=== PATIENT | female | born 1950 | race Caucasian/White ===

== ENCOUNTER → 2018-05-25 09:56 | Outpatient (CLI) | payer MEDICARE, OTHER, SELFPAY ==
--- NOTE | 2018-05-25 | DI.MG.S_ITS ---
BILATERAL DIGITAL SCREENING MAMMOGRAM 3D/2D WITH CAD: 05/25/2018 CLINICAL: Routine screening. Family history of breast cancer. Comparison is made to exams dated: 05/19/2017 mammogram, 02/19/2016 mammogram, and 01/05/2015 mammogram - [facility]. There are scattered fibroglandular elements in both breasts. Current study was also evaluated with a Computer Aided Detection (CAD) system. No significant masses, calcifications, or other findings are seen in either breast. There has been no significant interval change. IMPRESSION: NEGATIVE There is no mammographic evidence of malignancy. A 1 year screening mammogram is recommended. This exam was interpreted at Station ID: [id number]. NOTE: For mammograms, a report in lay terms will be sent to the patient. Approximately 15% of breast malignancies will not be visualized mammographically. In the management of a palpable breast mass, a negative mammogram must not discourage biopsy of a clinically suspicious lesion. Electronically Signed By: Kunal harris/dary:05/25/2018 16:55:39 letter sent: Normal Exam ACR BI-RADS Category 1: Negative 3341F
== END ==
PROVIDERS: Family Provider Internal Medicine; PCP Internal Medicine; Visit Provider Internal Medicine
DX: Z12.31 Encounter for screening mammogram for malignant neoplasm of breast (principal); Z80.3 Family history of malignant neoplasm of breast
CPT/HCPCS: 77063; 77067

== ENCOUNTER → 2018-08-12 14:04 | Outpatient (CLI) | payer MEDICARE, OTHER, SELFPAY | DX: Z23 Encounter for immunization (principal) | CPT/HCPCS: 90471; 90662 ==

== ENCOUNTER → 2018-08-12 15:41 | Outpatient (CLI) | payer MEDICARE, OTHER, SELFPAY | DX: Z23 Encounter for immunization (principal) ==

== ENCOUNTER → 2019-06-09 11:08 | Outpatient (CLI) | payer MEDICARE, OTHER, SELFPAY ==
--- NOTE | 2019-06-09 | DI.MG.S_ITS ---
BILATERAL DIGITAL SCREENING MAMMOGRAM 3D/2D WITH CAD: 06/09/2019 CLINICAL: Routine screening. Family history of breast cancer. Comparison is made to exams dated: 05/25/2018 mammogram, 05/19/2017 mammogram, and 02/19/2016 mammogram - [facility]. There are scattered fibroglandular elements in both breasts. Current study was also evaluated with a Computer Aided Detection (CAD) system. No significant masses, calcifications, or other findings are seen in either breast. There has been no significant interval change. IMPRESSION: NEGATIVE There is no mammographic evidence of malignancy. A 1 year screening mammogram is recommended. This exam was interpreted at Station ID: [id number]. NOTE: For mammograms, a report in lay terms will be sent to the patient. Approximately 15% of breast malignancies will not be visualized mammographically. In the management of a palpable breast mass, a negative mammogram must not discourage biopsy of a clinically suspicious lesion. Electronically Signed By: Magdy bunn/dary:06/09/2019 12:39:52 letter sent: Normal Exam ACR BI-RADS Category 1: Negative 3341F
== END ==
PROVIDERS: Family Provider Internal Medicine; PCP Internal Medicine; Visit Provider Internal Medicine
DX: Z12.31 Encounter for screening mammogram for malignant neoplasm of breast (principal); Z80.3 Family history of malignant neoplasm of breast
CPT/HCPCS: 77063; 77067

== ENCOUNTER → 2019-08-02 15:39 | Outpatient (CLI) | payer MEDICARE, OTHER, SELFPAY | PROVIDERS: PCP Internal Medicine | DX: Z23 Encounter for immunization (principal) | CPT/HCPCS: 90471; 90662 ==

== ENCOUNTER → 2019-10-11 15:55 | Outpatient (CLI) | payer MEDICARE, OTHER, SELFPAY ==
--- NOTE | 2019-10-11 | DI.RAD.S_ITS ---
PROCEDURE: XR SHOULDER LT MIN 2V INDICATIONS: shoulder injury TECHNIQUE: 3 views of the shoulder were acquired. COMPARISON: None. FINDINGS: Bones: No fractures or dislocations. No suspicious bony lesions. Visualized ribs appear intact. Severe AC joint degeneration. There is also glenohumeral degenerative sclerosis and spurring. Lateral downsloping appearance of the acromion. Soft tissues: No suspicious soft tissue calcifications. IMPRESSION: No fracture. If the patient's pain or other symptoms persist, consider further evaluation with MRI Degenerative changes as above Dictated by: Wesley Mcelroy M.D. on 10/11/2019 at 16:47 Approved by: Wesley Mcelroy M.D. on 10/11/2019 at 16:48
== END ==
PROVIDERS: PCP Internal Medicine; Visit Provider Internal Medicine
DX: S49.92XA Unspecified injury of left shoulder and upper arm, initial encounter (principal); M19.012 Primary osteoarthritis, left shoulder; X58.XXXA Exposure to other specified factors, initial encounter
CPT/HCPCS: 73030

== ENCOUNTER 2019-11-15 13:45 | Outpatient (RCR) | payer MEDICARE, OTHER, SELFPAY ==
--- NOTE | 2019-10-13 17:36 | PT.OIE ---
Current Diagnoses Other shoulder lesions, left shoulder (10/13/19) Visit Care Team Role Provider Type Kar Middleton MD Attending Provider Physician Primary Care Provider Specialty: Internal Medicine Address: [address] [place] [address], [id number] Email: [email or web address] [facility] Initial Evaluation PT-OP-A Visit Information Start: 10/13/19 15:17 Freq: Status: Active Protocol: Document 10/13/19 15:17 (Rec: 10/13/19 17:30 [id number]) Out-Patient Physical Therapy Visit Information Visit Information Visit Type Initial Evaluation Visit Note IE led by SAUNDRA Aggarwal, supervised by PT James Visit Start Time 15:17 Visit Stop Time 15:55 Total Visit Minutes 38 Visit Number 1 Number of BILLING CONTROL CLERK Visits 0 Evaluation Information Evaluation Date 10/13/19 PT-OP-B Current Condition Start: 10/13/19 15:17 Freq: Status: Active Protocol: Document 10/13/19 15:17 HH (Rec: 10/13/19 17:30 [id number]) Current Condition History of Current Condition Onset Date ~1 month ago Current Complaints L shoulder/upper arm pain History of Current Condition Pt presents to PT with primary c/o L shoulder pain that started ~1 month ago. She states that she thinks she injured her shoulder while assisting her with transfers. Her has MS and is wheelchair bound, and typically is able to stand/ pivot transfer independently but 1 or 2 times/week pt needs to assist to prevent falls. She described her symptoms as dull and achy pain. She notes that the main activities that aggravate it are sleeping on her R side and doing shoulder barbell raise with B shoulder abduction and IR during her exercise class. She states that overall she thinks her pain is improving but still notes lingering pain after activity. Prior Treatments and Tests XR 10/11/19: no fx, AC joint degeneration Treatment Goals Patient/Caregiver Goals 1. improve shoulder ROM 2. able to fully participate in exercise class without pain 3. learn how to safely help with transfers to prevent reinjury PT-OP-C Subjective Start: 10/13/19 15:17 Freq: Status: Active Protocol: Document 10/13/19 15:17 (Rec: 10/13/19 17:30 [id number]) OP-PT Subjective Patient Comments Patient Comments I feel like my shoulder pain is improving but I still have pain after helping my or during my exercise class. I feel like I have also lost some of my shoulder ROM. Patient Questionnaires Quick Dash- Upper Extremity Quick Dash UE Score 29.5 Quick Dash UE Impairment 20 to 39% Impaired (Score 20- 39) OP-PT Pain Assessment Location L shoulder Pain Location Details L suprascapular, biceps/upper arm Intensity 4 Scale Used Numeric (1 - 10) Description Aching,Dull,With Movement Frequency Intermittent Pain Aggravating Factors ADL's,Exercise,Lifting Pain Alleviating Factors Inactivity PT-OP-H Neuro Start: 10/13/19 15:17 Freq: Status: Active Protocol: Document 10/13/19 15:17 HH (Rec: 10/13/19 17:30 [id number]) Sensation Evaluation Gross Sensation Gross Sensation WNL Deep Tendon Reflex & Clonus Assessment Deep Tendon Reflex Bilateral Tricep Deep Tendon Reflex 2+ Normal Bilateral Brachioradialis Deep Tendon Reflex 2+ Normal Bilateral Bicep Deep Tendon Reflex 2+ Normal PT-OP-J Posture/Palpation/Skin Start: 10/13/19 15:17 Freq: Status: Active Protocol: Document 10/13/19 15:17 HH (Rec: 10/13/19 17:30 [id number]) Posture Evaluation Position Sitting Evaluation View Lateral T-Spine Posture Increased Kyphosis Shoulder Posture (L) Rounded,(R) Rounded PT-OP-K Range of Motion Start: 10/13/19 15:17 Freq: Status: Active Protocol: Document 10/13/19 15:17 HH (Rec: 10/13/19 17:30 [id number]) Cervical Spine Range of Motion Cervical Spine Active Testing Position Sitting Flexion 50 Extension 50 Rotation Left 60 Rotation Right 45 Comments pt notes mild stretching sx in L shoulder with R C/S rotation and SB Shoulder Goniometric Range of Motion Shoulder Left Testing Position sitting, supine Flexion 150 Abduction 130 External Rotation at 90 degrees 50 Abduction Right Testing Position Sitting Flexion 170 Abduction 180 PT-OP-L Special Tests Start: 10/13/19 15:17 Freq: Status: Active Protocol: Document 10/13/19 15:17 (Rec: 10/13/19 17:30 [id number]) Special Tests Cervical Spine Special Tests Traction Test Results -ve Spurling's Test Test Results -ve Foraminal Compression Test Results -ve Comments mild stretch rotation in shoulder Shoulder Special Tests IR/Horizontal ADD Impingement Test Results -ve [place] Test Test Results +ve weakness Neer Impingement Test Results -ve Lift-Off Rotator Cuff Test Results -ve Empty Can Comments +ve for weakness Claire Ulcies Impingement Test Results -ve Yergason's Biceps Test Results -ve Biceps Load II Test Test Results -ve Apprehension Test Test Results +ve Comments + post relocation test Other Special Tests Special Tests Lumbar lock JMD PT-OP-M Strength Start: 10/13/19 15:17 Freq: Status: Active Protocol: Document 10/13/19 15:17 (Rec: 10/13/19 17:30 [id number]) Shoulder Strength Shoulder Manual Muscle Testing Left Flexion 4 Good Abduction (C5) 4 Good External Rotation 4 Good Internal Rotation 4 Good Right Flexion 5 Normal Abduction (C5) 5 Normal External Rotation 5 Normal Internal Rotation 5 Normal Elbow/Forearm Strength Elbow and Forearm Manual Muscle Testing Bilateral Flexion (C6) 5 Normal Extension (C7) 5 Normal Wrist Strength Wrist Manual Muscle Testing Bilateral Flexion (C7) 5 Normal Extension (C6) 5 Normal Finger/Thumb Strength Finger Manual Muscle Testing Bilateral Flexion (fingers C8) 5 Normal Abduction (fingers T1) 5 Normal PT-OP-Q Treatments Start: 10/13/19 15:17 Freq: Status: Active Protocol: Document 10/13/19 15:17 (Rec: 10/13/19 17:30 [id number]) Self-Care/Home Management Treatment Education Other Education Disc ways to assist with transfers without reaggravating shoulers. PT-OP-T Assessment and Plan Start: 10/13/19 15:17 Freq: Status: Active Protocol: Document 10/13/19 15:17 (Rec: 10/13/19 17:30 [id number]) Physical Therapy Assessment Rehab Potential Rehabilitation Potential Excellent Evaluation Complexity Number of Personal Factors/Comorbidities 0 Number of Body Systems Impaired 1-2 Clinical Presentation at Evaluation Stable Impairments Impairments Functional Mobility,Pain, Posture,ROM,Soft Tissue Mobility,Strength Goals Exercise class Impairment Pt unable to fully participate in exercise class d/t L shoulder pain Short Term Goal (STG) Pt will be able to participate in exercise class with limited weight without inc in shoulder pain STG Duration 4 weeks Mcfp Goal (LTG) Pt will be able to fully participate in exercise class without limitation or inc in shoulder pain LTG Duration 8 weeks ROM Impairment Pt has limited L shoulder mobility Short Term Goal (STG) Pt will increase L shoulder flexion and abduction ROM by 10 dg to improve ability to complete overhead functional movements STG Duration 4 weeks Mcfp Goal (LTG) Pt will increase L shoulder flexion and abduction ROM by 20 dg to improve ability to complete overhead functional movements LTG Duration 8 weeks Quick DASH Impairment Pt scores as 29.5% impaired on Quick DASH Short Term Goal (STG) Pt will score <20% on Quick DASH to reflect improved participation in functional activities STG Duration 4 weeks Mcfp Goal (LTG) Pt will score <10% on Quick DASH to reflect improved participation in functional activities LTG Duration 8 weeks Assessment Summary Assessment Pt is low complexity eval presenting to PT with primary c/o of L shoulder pain. Pt demonstrates low sx irritability during IE but notes feeling generally dull ache by end of evaluation. Pt also reports pain with shoulder abduction as well as pain and weakness with abduction MMT. Pt demonstrates weakness with L shoulder ER MMT and empty can test. Pt demonstrates mild ant shoulder instability with sx reproduction with apprehension test and relief with post relocation test. She also has inc'd thoracic kyphosis and limited thoracic mobility which likely is contributing to shoulder irritation. Pt will benefit from skilled therapy to improve thoracic mobility as well as scapular and shoulder strength, and should recover well with therapy. Physical Therapy Plan Frequency and Duration Frequency of Treatment 2x/Week Duration of Treatment 8 weeks Plan of Care Start Date 10/13/19 Plan of Care End Date 12/08/19 Therapeutic Interventions Therapeutic Interventions Home Exercise Program,Joint Mobilizations,Manual Therapy, Neuromuscular Re-education, Patient/Caregiver Education, Self-Care/Home Management,Soft Tissue Mobilization,Taping, Therapeutic Activities, Therapeutic Exercises Modalities Cold Pack/Ice Massage,Electric Stimulation,Hot Packs, Ultrasound Next Visit Focus/Plan Next Note Type Treatment Note Next Visit Plan Thoracic mobility RC isometrics scapular stabilization safe transfer assist practice
--- NOTE | 2019-10-13 17:40 | PT.OTN ---
Current Diagnoses Other shoulder lesions, left shoulder (10/13/19) Physical Therapy Treatment Note PT-OP-A Visit Information Start: 10/13/19 15:17 Freq: Status: Active Protocol: Document 10/13/19 15:17 (Rec: 10/13/19 17:30 [id number]) Out-Patient Physical Therapy Visit Information Visit Information Visit Type Initial Evaluation Visit Note IE led by SPT Jasen, supervised by PT James Visit Start Time 15:17 Visit Stop Time 15:55 Total Visit Minutes 38 Visit Number 1 Number of TELECASTING ENGINEER Visits 0 Evaluation Information Evaluation Date 10/13/19 PT-OP-B Current Condition Start: 10/13/19 15:17 Freq: Status: Active Protocol: Document 10/13/19 15:17 HH (Rec: 10/13/19 17:30 [id number]) Current Condition History of Current Condition Onset Date ~1 month ago Current Complaints L shoulder/upper arm pain History of Current Condition Pt presents to PT with primary c/o L shoulder pain that started ~1 month ago. She states that she thinks she injured her shoulder while assisting her with transfers. Her has MS and is wheelchair bound, and typically is able to stand/ pivot transfer independently but 1 or 2 times/week pt needs to assist to prevent falls. She described her symptoms as dull and achy pain. She notes that the main activities that aggravate it are sleeping on her R side and doing shoulder barbell raise with B shoulder abduction and IR during her exercise class. She states that overall she thinks her pain is improving but still notes lingering pain after activity. Prior Treatments and Tests XR 10/11/19: no fx, AC joint degeneration Treatment Goals Patient/Caregiver Goals 1. improve shoulder ROM 2. able to fully participate in exercise class without pain 3. learn how to safely help with transfers to prevent reinjury PT-OP-C Subjective Start: 10/13/19 15:17 Freq: Status: Active Protocol: Document 10/13/19 15:17 (Rec: 10/13/19 17:30 [id number]) OP-PT Subjective Patient Comments Patient Comments I feel like my shoulder pain is improving but I still have pain after helping my or during my exercise class. I feel like I have also lost some of my shoulder ROM. Patient Questionnaires Quick Dash- Upper Extremity Quick Dash UE Score 29.5 Quick Dash UE Impairment 20 to 39% Impaired (Score 20- 39) OP-PT Pain Assessment Location L shoulder Pain Location Details L suprascapular, biceps/upper arm Intensity 4 Scale Used Numeric (1 - 10) Description Aching,Dull,With Movement Frequency Intermittent Pain Aggravating Factors ADL's,Exercise,Lifting Pain Alleviating Factors Inactivity PT-OP-H Neuro Start: 10/13/19 15:17 Freq: Status: Active Protocol: Document 10/13/19 15:17 HH (Rec: 10/13/19 17:30 [id number]) Sensation Evaluation Gross Sensation Gross Sensation WNL Deep Tendon Reflex & Clonus Assessment Deep Tendon Reflex Bilateral Tricep Deep Tendon Reflex 2+ Normal Bilateral Brachioradialis Deep Tendon Reflex 2+ Normal Bilateral Bicep Deep Tendon Reflex 2+ Normal PT-OP-J Posture/Palpation/Skin Start: 10/13/19 15:17 Freq: Status: Active Protocol: Document 10/13/19 15:17 HH (Rec: 10/13/19 17:30 [id number]) Posture Evaluation Position Sitting Evaluation View Lateral T-Spine Posture Increased Kyphosis Shoulder Posture (L) Rounded,(R) Rounded PT-OP-K Range of Motion Start: 10/13/19 15:17 Freq: Status: Active Protocol: Document 10/13/19 15:17 HH (Rec: 10/13/19 17:30 [id number]) Cervical Spine Range of Motion Cervical Spine Active Testing Position Sitting Flexion 50 Extension 50 Rotation Left 60 Rotation Right 45 Comments pt notes mild stretching sx in L shoulder with R C/S rotation and SB Shoulder Goniometric Range of Motion Shoulder Left Testing Position sitting, supine Flexion 150 Abduction 130 External Rotation at 90 degrees 50 Abduction Right Testing Position Sitting Flexion 170 Abduction 180 PT-OP-L Special Tests Start: 10/13/19 15:17 Freq: Status: Active Protocol: Document 10/13/19 15:17 HH (Rec: 10/13/19 17:30 [id number]) Special Tests Cervical Spine Special Tests Traction Test Results -ve Spurling's Test Test Results -ve Foraminal Compression Test Results -ve Comments mild stretch rotation in shoulder Shoulder Special Tests IR/Horizontal ADD Impingement Test Results -ve [place] Test Test Results +ve weakness Neer Impingement Test Results -ve Lift-Off Rotator Cuff Test Results -ve Empty Can Comments +ve for weakness Claire [place]lices Impingement Test Results -ve Yergason's Biceps Test Results -ve Biceps Load II Test Test Results -ve Apprehension Test Test Results +ve Comments + post relocation test Other Special Tests Special Tests Lumbar lock JMD PT-OP-M Strength Start: 10/13/19 15:17 Freq: Status: Active Protocol: Document 10/13/19 15:17 HH (Rec: 10/13/19 17:30 [id number]) Shoulder Strength Shoulder Manual Muscle Testing Left Flexion 4 Good Abduction (C5) 4 Good External Rotation 4 Good Internal Rotation 4 Good Right Flexion 5 Normal Abduction (C5) 5 Normal External Rotation 5 Normal Internal Rotation 5 Normal Elbow/Forearm Strength Elbow and Forearm Manual Muscle Testing Bilateral Flexion (C6) 5 Normal Extension (C7) 5 Normal Wrist Strength Wrist Manual Muscle Testing Bilateral Flexion (C7) 5 Normal Extension (C6) 5 Normal Finger/Thumb Strength Finger Manual Muscle Testing Bilateral Flexion (fingers C8) 5 Normal Abduction (fingers T1) 5 Normal PT-OP-Q Treatments Start: 10/13/19 15:17 Freq: Status: Active Protocol: Document 10/13/19 15:17 HH (Rec: 10/13/19 17:30 [id number]) Self-Care/Home Management Treatment Education Other Education Disc ways to assist with transfers without reaggravating shoulers. PT-OP-T Assessment and Plan Start: 10/13/19 15:17 Freq: Status: Active Protocol: Document 10/13/19 15:17 (Rec: 10/13/19 17:30 [id number]) Physical Therapy Assessment Rehab Potential Rehabilitation Potential Excellent Evaluation Complexity Number of Personal Factors/Comorbidities 0 Number of Body Systems Impaired 1-2 Clinical Presentation at Evaluation Stable Impairments Impairments Functional Mobility,Pain, Posture,ROM,Soft Tissue Mobility,Strength Goals Exercise class Impairment Pt unable to fully participate in exercise class d/t L shoulder pain Short Term Goal (STG) Pt will be able to participate in exercise class with limited weight without inc in shoulder pain STG Duration 4 weeks Half-Way Goal (LTG) Pt will be able to fully participate in exercise class without limitation or inc in shoulder pain LTG Duration 8 weeks ROM Impairment Pt has limited L shoulder mobility Short Term Goal (STG) Pt will increase L shoulder flexion and abduction ROM by 10 dg to improve ability to complete overhead functional movements STG Duration 4 weeks Half-Way Goal (LTG) Pt will increase L shoulder flexion and abduction ROM by 20 dg to improve ability to complete overhead functional movements LTG Duration 8 weeks Quick DASH Impairment Pt scores as 29.5% impaired on Quick DASH Short Term Goal (STG) Pt will score <20% on Quick DASH to reflect improved participation in functional activities STG Duration 4 weeks Half-Way Goal (LTG) Pt will score <10% on Quick DASH to reflect improved participation in functional activities LTG Duration 8 weeks Assessment Summary Assessment Pt is low complexity eval presenting to PT with primary c/o of L shoulder pain. Pt demonstrates low sx irritability during IE but notes feeling generally dull ache by end of evaluation. Pt also reports pain with shoulder abduction as well as pain and weakness with abduction MMT. Pt demonstrates weakness with L shoulder ER MMT and empty can test. Pt demonstrates mild ant shoulder instability with sx reproduction with apprehension test and relief with post relocation test. She also has inc'd thoracic kyphosis and limited thoracic mobility which likely is contributing to shoulder irritation. Pt will benefit from skilled therapy to improve thoracic mobility as well as scapular and shoulder strength, and should recover well with therapy. Physical Therapy Plan Frequency and Duration Frequency of Treatment 2x/Week Duration of Treatment 8 weeks Plan of Care Start Date 10/13/19 Plan of Care End Date 12/08/19 Therapeutic Interventions Therapeutic Interventions Home Exercise Program,Joint Mobilizations,Manual Therapy, Neuromuscular Re-education, Patient/Caregiver Education, Self-Care/Home Management,Soft Tissue Mobilization,Taping, Therapeutic Activities, Therapeutic Exercises Modalities Cold Pack/Ice Massage,Electric Stimulation,Hot Packs, Ultrasound Next Visit Focus/Plan Next Note Type Treatment Note Next Visit Plan Thoracic mobility RC isometrics scapular stabilization safe transfer assist practice
--- NOTE | 2019-10-14 17:17 | PT.OTN ---
Current Diagnoses Other shoulder lesions, left shoulder (10/14/19) Physical Therapy Treatment Note PT-OP-A Visit Information Start: 10/13/19 15:17 Freq: Status: Active Protocol: Document 10/14/19 14:35 HH (Rec: 10/14/19 17:17 [id number]) Out-Patient Physical Therapy Visit Information Visit Information Visit Type Treatment Note Visit Start Time 14:35 Visit Stop Time 15:14 Total Visit Minutes 39 Visit Number 2 Number of MERCHANDISE COMPLAINT ADJUSTER Visits 0 PT-OP-B Current Condition Start: 10/13/19 15:17 Freq: Status: Active Protocol: Document 10/13/19 15:17 HH (Rec: 10/13/19 17:30 [id number]) Current Condition History of Current Condition Onset Date ~1 month ago Current Complaints L shoulder/upper arm pain History of Current Condition Pt presents to PT with primary c/o L shoulder pain that started ~1 month ago. She states that she thinks she injured her shoulder while assisting her with transfers. Her has MS and is wheelchair bound, and typically is able to stand/ pivot transfer independently but 1 or 2 times/week pt needs to assist to prevent falls. She described her symptoms as dull and achy pain. She notes that the main activities that aggravate it are sleeping on her R side and doing shoulder barbell raise with B shoulder abduction and IR during her exercise class. She states that overall she thinks her pain is improving but still notes lingering pain after activity. Prior Treatments and Tests XR 10/11/19: no fx, AC joint degeneration Treatment Goals Patient/Caregiver Goals 1. improve shoulder ROM 2. able to fully participate in exercise class without pain 3. learn how to safely help with transfers to prevent reinjury PT-OP-C Subjective Start: 10/13/19 15:17 Freq: Status: Active Protocol: Document 10/14/19 14:35 HH (Rec: 10/14/19 17:17 [id number]) OP-PT Subjective Patient Comments Patient Comments I got sore from yesterday assessment but i did try to use pillow to support my shoulder last night and it did help. PT-OP-H Neuro Start: 10/13/19 15:17 Freq: Status: Active Protocol: Document 10/13/19 15:17 HH (Rec: 10/13/19 17:30 [id number]) Sensation Evaluation Gross Sensation Gross Sensation WNL Deep Tendon Reflex & Clonus Assessment Deep Tendon Reflex Bilateral Tricep Deep Tendon Reflex 2+ Normal Bilateral Brachioradialis Deep Tendon Reflex 2+ Normal Bilateral Bicep Deep Tendon Reflex 2+ Normal PT-OP-J Posture/Palpation/Skin Start: 10/13/19 15:17 Freq: Status: Active Protocol: Document 10/13/19 15:17 HH (Rec: 10/13/19 17:30 [id number]) Posture Evaluation Position Sitting Evaluation View Lateral T-Spine Posture Increased Kyphosis Shoulder Posture (L) Rounded,(R) Rounded PT-OP-K Range of Motion Start: 10/13/19 15:17 Freq: Status: Active Protocol: Document 10/13/19 15:17 HH (Rec: 10/13/19 17:30 [id number]) Cervical Spine Range of Motion Cervical Spine Active Testing Position Sitting Flexion 50 Extension 50 Rotation Left 60 Rotation Right 45 Comments pt notes mild stretching sx in L shoulder with R C/S rotation and SB Shoulder Goniometric Range of Motion Shoulder Left Testing Position sitting, supine Flexion 150 Abduction 130 External Rotation at 90 degrees 50 Abduction Right Testing Position Sitting Flexion 170 Abduction 180 PT-OP-L Special Tests Start: 10/13/19 15:17 Freq: Status: Active Protocol: Document 10/13/19 15:17 HH (Rec: 10/13/19 17:30 [id number]) Special Tests Cervical Spine Special Tests Traction Test Results -ve Spurling's Test Test Results -ve Foraminal Compression Test Results -ve Comments mild stretch rotation in shoulder Shoulder Special Tests IR/Horizontal ADD Impingement Test Results -ve [place] Test Test Results +ve weakness Neer Impingement Test Results -ve Lift-Off Rotator Cuff Test Results -ve Empty Can Comments +ve for weakness Claire Ulices Impingement Test Results -ve Yergason's Biceps Test Results -ve Biceps Load II Test Test Results -ve Apprehension Test Test Results +ve Comments + post relocation test Other Special Tests Special Tests Lumbar lock 20/30 JMD PT-OP-M Strength Start: 10/13/19 15:17 Freq: Status: Active Protocol: Document 10/13/19 15:17 HH (Rec: 10/13/19 17:30 [id number]) Shoulder Strength Shoulder Manual Muscle Testing Left Flexion 4 Good Abduction (C5) 4 Good External Rotation 4 Good Internal Rotation 4 Good Right Flexion 5 Normal Abduction (C5) 5 Normal External Rotation 5 Normal Internal Rotation 5 Normal Elbow/Forearm Strength Elbow and Forearm Manual Muscle Testing Bilateral Flexion (C6) 5 Normal Extension (C7) 5 Normal Wrist Strength Wrist Manual Muscle Testing Bilateral Flexion (C7) 5 Normal Extension (C6) 5 Normal Finger/Thumb Strength Finger Manual Muscle Testing Bilateral Flexion (fingers C8) 5 Normal Abduction (fingers T1) 5 Normal PT-OP-Q Treatments Start: 10/13/19 15:17 Freq: Status: Active Protocol: Document 10/14/19 14:35 HH (Rec: 10/14/19 17:17 [id number]) Therapeutic Exercises Supine Exercises AAROM flexion/ abd Side left Equipment Used SPC Reps/Minutes 10 x2 each motion Comments full range Sidelying Exercises open book Sidelying Exercise Name lumbar lock Side bilateral Reps/Minutes 8 x2 Comments cues on isolated T/S rotation with c/s rotation Standing Exercises scap row Side bilateral Equipment Used level 1 band Reps/Minutes 6 mins Comments pt initially did shd ext only, need cues for scap retraction Manual Therapy Treatment Soft Tissue Mobilization proximal bicep Body Location L side Mobilization Type Sustained Pressure,Trigger Point Release Intensity/Depth Moderate Body Position Sitting upper trap Body Location L side Mobilization Type Sustained Pressure,Trigger Point Release Intensity/Depth Moderate Body Position Sitting Joint Mobilizations post-inf glide Joint L GH joint at shd 90 abd Grade II Body Position Supine Reps/Duration 5 secs x 8 PT-OP-T Assessment and Plan Start: 10/13/19 15:17 Freq: Status: Active Protocol: Document 10/14/19 14:35 HH (Rec: 10/14/19 17:17 [email or web address]) Physical Therapy Assessment Goals Exercise class Impairment Pt unable to fully participate in exercise class d/t L shoulder pain Short Term Goal (STG) Pt will be able to participate in exercise class with limited weight without inc in shoulder pain STG Duration 4 weeks Aluminum Boat Assembly Supervisor Goal (LTG) Pt will be able to fully participate in exercise class without limitation or inc in shoulder pain LTG Duration 8 weeks ROM Impairment Pt has limited L shoulder mobility Short Term Goal (STG) Pt will increase L shoulder flexion and abduction ROM by 10 dg to improve ability to complete overhead functional movements STG Duration 4 weeks [facility] Goal (LTG) Pt will increase L shoulder flexion and abduction ROM by 20 dg to improve ability to complete overhead functional movements LTG Duration 8 weeks Quick DASH Impairment Pt scores as 29.5% impaired on Quick DASH Short Term Goal (STG) Pt will score <20% on Quick DASH to reflect improved participation in functional activities STG Duration 4 weeks Al[employer] Boat Assembly Supervisor Goal (LTG) Pt will score <10% on Quick DASH to reflect improved participation in functional activities LTG Duration 8 weeks Assessment Summary Assessment First tx today focused on STM on L trap, supinatus and biceps f/b new HEP with AAROM with cane, scap row and open book. Pt reports tenderness during STM and noticeable limited T/S trunk rotation and extension. Physical Therapy Plan Next Visit Focus/Plan Next Note Type Treatment Note Next Visit Plan review HEP and check [place] ROT and EXT Thoracic mobility RC isometrics scapular stabilization safe transfer assist practice
--- NOTE | 2019-10-17 13:50 | PT.OTN ---
Current Diagnoses Other shoulder lesions, left shoulder (10/17/19) Physical Therapy Treatment Note PT-OP-A Visit Information Start: 10/13/19 15:17 Freq: Status: Active Protocol: Document 10/17/19 13:06 SP (Rec: 10/17/19 14:00 SP [id number]) Out-Patient Physical Therapy Visit Information Visit Information Visit Type Treatment Note Visit Start Time 13:06 Visit Stop Time 13:51 Total Visit Minutes 45 Visit Number 3 Number of SHUCKER Visits 1 PT-OP-B Current Condition Start: 10/13/19 15:17 Freq: Status: Active Protocol: Document 10/13/19 15:17 HH (Rec: 10/13/19 17:30 HH [id number]) Current Condition History of Current Condition Onset Date ~1 month ago Current Complaints L shoulder/upper arm pain History of Current Condition Pt presents to PT with primary c/o L shoulder pain that started ~1 month ago. She states that she thinks she injured her shoulder while assisting her with transfers. Her has MS and is wheelchair bound, and typically is able to stand/ pivot transfer independently but 1 or 2 times/week pt needs to assist to prevent falls. She described her symptoms as dull and achy pain. She notes that the main activities that aggravate it are sleeping on her R side and doing shoulder barbell raise with B shoulder abduction and IR during her exercise class. She states that overall she thinks her pain is improving but still notes lingering pain after activity. Prior Treatments and Tests XR 10/11/19: no fx, AC joint degeneration Treatment Goals Patient/Caregiver Goals 1. improve shoulder ROM 2. able to fully participate in exercise class without pain 3. learn how to safely help with transfers to prevent reinjury PT-OP-C Subjective Start: 10/13/19 15:17 Freq: Status: Active Protocol: Document 10/17/19 13:06 SP (Rec: 10/17/19 14:00 SP [id number]) OP-PT Subjective Patient Comments Patient Comments PT-OP-H Neuro Start: 10/13/19 15:17 Freq: Status: Active Protocol: Document 10/13/19 15:17 HH (Rec: 10/13/19 17:30 HH [id number]) Sensation Evaluation Gross Sensation Gross Sensation WNL Deep Tendon Reflex & Clonus Assessment Deep Tendon Reflex Bilateral Tricep Deep Tendon Reflex 2+ Normal Bilateral Brachioradialis Deep Tendon Reflex 2+ Normal Bilateral Bicep Deep Tendon Reflex 2+ Normal PT-OP-J Posture/Palpation/Skin Start: 10/13/19 15:17 Freq: Status: Active Protocol: Document 10/13/19 15:17 HH (Rec: 10/13/19 17:30 [id number]) Posture Evaluation Position Sitting Evaluation View Lateral T-Spine Posture Increased Kyphosis Shoulder Posture (L) Rounded,(R) Rounded PT-OP-K Range of Motion Start: 10/13/19 15:17 Freq: Status: Active Protocol: Document 10/13/19 15:17 HH (Rec: 10/13/19 17:30 [id number]) Cervical Spine Range of Motion Cervical Spine Active Testing Position Sitting Flexion 50 Extension 50 Rotation Left 60 Rotation Right 45 Comments pt notes mild stretching sx in L shoulder with R C/S rotation and SB Shoulder Goniometric Range of Motion Shoulder Left Testing Position sitting, supine Flexion 150 Abduction 130 External Rotation at 90 degrees 50 Abduction Right Testing Position Sitting Flexion 170 Abduction 180 PT-OP-L Special Tests Start: 10/13/19 15:17 Freq: Status: Active Protocol: Document 10/13/19 15:17 HH (Rec: 10/13/19 17:30 [id number]) Special Tests Cervical Spine Special Tests Traction Test Results -ve Spurling's Test Test Results -ve Foraminal Compression Test Results -ve Comments mild stretch rotation in shoulder Shoulder Special Tests IR/Horizontal ADD Impingement Test Results -ve [place] Test Test Results +ve weakness Neer Impingement Test Results -ve Lift-Off Rotator Cuff Test Results -ve Empty Can Comments +ve for weakness Claire Ulices Impingement Test Results -ve Yergason's Biceps Test Results -ve Biceps Load II Test Test Results -ve Apprehension Test Test Results +ve Comments + post relocation test Other Special Tests Special Tests Lumbar lock 20/30 JMD PT-OP-M Strength Start: 10/13/19 15:17 Freq: Status: Active Protocol: Document 10/13/19 15:17 HH (Rec: 10/13/19 17:30 [id number]) Shoulder Strength Shoulder Manual Muscle Testing Left Flexion 4 Good Abduction (C5) 4 Good External Rotation 4 Good Internal Rotation 4 Good Right Flexion 5 Normal Abduction (C5) 5 Normal External Rotation 5 Normal Internal Rotation 5 Normal Elbow/Forearm Strength Elbow and Forearm Manual Muscle Testing Bilateral Flexion (C6) 5 Normal Extension (C7) 5 Normal Wrist Strength Wrist Manual Muscle Testing Bilateral Flexion (C7) 5 Normal Extension (C6) 5 Normal Finger/Thumb Strength Finger Manual Muscle Testing Bilateral Flexion (fingers C8) 5 Normal Abduction (fingers T1) 5 Normal PT-OP-Q Treatments Start: 10/13/19 15:17 Freq: Status: Active Protocol: Document 10/17/19 13:06 SP (Rec: 10/17/19 14:00 SP [id number]) Therapeutic Exercises Supine Exercises snow madelyn Side bilateral Equipment Used noodle along spine Reps/Minutes 5 reps AAROM flexion/ abd Side left Equipment Used SPC Reps/Minutes 10 x2 each motion Comments full range Sidelying Exercises open book Sidelying Exercise Name lumbar lock Side bilateral Reps/Minutes 10 x2 Comments cues on isolated T/S rotation with c/s rotation Standing Exercises RTC isometrics Standing Exercise Name ER, IR, FF, Ext Side left Reps/Minutes 10 hold x10 Comments cued chest lift and neutral pelvis to decrease post neck/ LB recruitment scap row Side bilateral Equipment Used level 2 band Reps/Minutes 3x10 Comments Cued for chest lift with improvement scap retraction Manual Therapy Treatment Joint Mobilizations PROM FF, ABD Reps/Duration 4 min post-inf glide Joint L GH joint at shd 90 abd Grade II Body Position Supine Reps/Duration 5 secs x 8 PT-OP-T Assessment and Plan Start: 10/13/19 15:17 Freq: Status: Active Protocol: Document 10/17/19 13:06 SP (Rec: 10/17/19 14:00 SP [id number]) Physical Therapy Assessment Goals Exercise class Impairment Pt unable to fully participate in exercise class d/t L shoulder pain Short Term Goal (STG) Pt will be able to participate in exercise class with limited weight without inc in shoulder pain STG Duration 4 weeks Head Swamper Goal (LTG) Pt will be able to fully participate in exercise class without limitation or inc in shoulder pain LTG Duration 8 weeks ROM Impairment Pt has limited L shoulder mobility Short Term Goal (STG) Pt will increase L shoulder flexion and abduction ROM by 10 dg to improve ability to complete overhead functional movements STG Duration 4 weeks Fdc Goal (LTG) Pt will increase L shoulder flexion and abduction ROM by 20 dg to improve ability to complete overhead functional movements LTG Duration 8 weeks Quick DASH Impairment Pt scores as 29.5% impaired on Quick DASH Short Term Goal (STG) Pt will score <20% on Quick DASH to reflect improved participation in functional activities STG Duration 4 weeks Fdc Goal (LTG) Pt will score <10% on Quick DASH to reflect improved participation in functional activities LTG Duration 8 weeks Assessment Summary Assessment Tx focused on HEP review: AAROM and TS mobility with good tolerance with increased ROM as reps progressed, added supine noodle for increase scapular ROM and standing RTC isometrics with report of muscle soreness/tiring and will probably use heating pad when gets home, declined end of tx today. Physical Therapy Plan Frequency and Duration Frequency of Treatment 2x/Week Duration of Treatment 8 weeks Plan of Care Start Date 10/13/19 Plan of Care End Date 12/08/19 Therapeutic Interventions Therapeutic Interventions Home Exercise Program,Joint Mobilizations,Manual Therapy, Neuromuscular Re-education, Patient/Caregiver Education, Self-Care/Home Management,Soft Tissue Mobilization,Taping, Therapeutic Activities, Therapeutic Exercises Modalities Cold Pack/Ice Massage,Electric Stimulation,Hot Packs, Ultrasound Next Visit Focus/Plan Next Note Type Treatment Note Next Visit Plan Review HEP: TS mob, AAROM FF/ ABD dowel, rows TB and added tolerance to RTC isometrics last tx. Next tx add: pulleys, wall walking LUE warm up, postural TB #1 if tolerated. Continue manual. Continue per PT POC: scapular stabilization safe transfer assist practice
--- NOTE | 2019-10-25 12:16 | PT.OTN ---
Current Diagnoses Other shoulder lesions, left shoulder (10/25/19) Physical Therapy Treatment Note PT-OP-A Visit Information Start: 10/13/19 15:17 Freq: Status: Active Protocol: Document 10/25/19 11:15 (Rec: 10/25/19 12:16 [id number]) Out-Patient Physical Therapy Visit Information Visit Information Visit Type Treatment Note Visit Start Time 11:15 Visit Stop Time 11:59 Total Visit Minutes 44 Visit Number 4 Number of POCKET ASSEMBLER Visits 0 PT-OP-B Current Condition Start: 10/13/19 15:17 Freq: Status: Active Protocol: Document 10/13/19 15:17 HH (Rec: 10/13/19 17:30 [id number]) Current Condition History of Current Condition Onset Date ~1 month ago Current Complaints L shoulder/upper arm pain History of Current Condition Pt presents to PT with primary c/o L shoulder pain that started ~1 month ago. She states that she thinks she injured her shoulder while assisting her with transfers. Her has MS and is wheelchair bound, and typically is able to stand/ pivot transfer independently but 1 or 2 times/week pt needs to assist to prevent falls. She described her symptoms as dull and achy pain. She notes that the main activities that aggravate it are sleeping on her R side and doing shoulder barbell raise with B shoulder abduction and IR during her exercise class. She states that overall she thinks her pain is improving but still notes lingering pain after activity. Prior Treatments and Tests XR 10/11/19: no fx, AC joint degeneration Treatment Goals Patient/Caregiver Goals 1. improve shoulder ROM 2. able to fully participate in exercise class without pain 3. learn how to safely help with transfers to prevent reinjury PT-OP-C Subjective Start: 10/13/19 15:17 Freq: Status: Active Protocol: Document 10/25/19 11:15 HH (Rec: 10/25/19 12:16 [id number]) OP-PT Subjective Patient Comments Patient Comments Mikki been doing the home exercises everyday and i still have that soreness sensation at the top and back of my L shoulder. I noticed that my range of motion has been increasing. Patient Reported Progress Improving PT-OP-H Neuro Start: 10/13/19 15:17 Freq: Status: Active Protocol: Document 10/13/19 15:17 HH (Rec: 10/13/19 17:30 [id number]) Sensation Evaluation Gross Sensation Gross Sensation WNL Deep Tendon Reflex & Clonus Assessment Deep Tendon Reflex Bilateral Tricep Deep Tendon Reflex 2+ Normal Bilateral Brachioradialis Deep Tendon Reflex 2+ Normal Bilateral Bicep Deep Tendon Reflex 2+ Normal PT-OP-J Posture/Palpation/Skin Start: 10/13/19 15:17 Freq: Status: Active Protocol: Document 10/13/19 15:17 HH (Rec: 10/13/19 17:30 [id number]) Posture Evaluation Position Sitting Evaluation View Lateral T-Spine Posture Increased Kyphosis Shoulder Posture (L) Rounded,(R) Rounded PT-OP-K Range of Motion Start: 10/13/19 15:17 Freq: Status: Active Protocol: Document 10/13/19 15:17 HH (Rec: 10/13/19 17:30 [id number]) Cervical Spine Range of Motion Cervical Spine Active Testing Position Sitting Flexion 50 Extension 50 Rotation Left 60 Rotation Right 45 Comments pt notes mild stretching sx in L shoulder with R C/S rotation and SB Shoulder Goniometric Range of Motion Shoulder Left Testing Position sitting, supine Flexion 150 Abduction 130 External Rotation at 90 degrees 50 Abduction Right Testing Position Sitting Flexion 170 Abduction 180 PT-OP-L Special Tests Start: 10/13/19 15:17 Freq: Status: Active Protocol: Document 10/13/19 15:17 HH (Rec: 10/13/19 17:30 [id number]) Special Tests Cervical Spine Special Tests Traction Test Results -ve Spurling's Test Test Results -ve Foraminal Compression Test Results -ve Comments mild stretch rotation in shoulder Shoulder Special Tests IR/Horizontal ADD Impingement Test Results -ve [place] Test Test Results +ve weakness Neer Impingement Test Results -ve Lift-Off Rotator Cuff Test Results -ve Empty Can Comments +ve for weakness Claire Ulices Impingement Test Results -ve Yergason's Biceps Test Results -ve Biceps Load II Test Test Results -ve Apprehension Test Test Results +ve Comments + post relocation test Other Special Tests Special Tests Lumbar lock 20/30 JMD PT-OP-M Strength Start: 10/13/19 15:17 Freq: Status: Active Protocol: Document 10/13/19 15:17 HH (Rec: 10/13/19 17:30 [id number]) Shoulder Strength Shoulder Manual Muscle Testing Left Flexion 4 Good Abduction (C5) 4 Good External Rotation 4 Good Internal Rotation 4 Good Right Flexion 5 Normal Abduction (C5) 5 Normal External Rotation 5 Normal Internal Rotation 5 Normal Elbow/Forearm Strength Elbow and Forearm Manual Muscle Testing Bilateral Flexion (C6) 5 Normal Extension (C7) 5 Normal Wrist Strength Wrist Manual Muscle Testing Bilateral Flexion (C7) 5 Normal Extension (C6) 5 Normal Finger/Thumb Strength Finger Manual Muscle Testing Bilateral Flexion (fingers C8) 5 Normal Abduction (fingers T1) 5 Normal PT-OP-Q Treatments Start: 10/13/19 15:17 Freq: Status: Active Protocol: Document 10/25/19 11:15 HH (Rec: 10/25/19 12:16 [id number]) Cardio Equipment Upper Body Ergometer (UBE) Duration (Minutes) 4 RPM 50 Therapeutic Exercises Supine Exercises T/S ext Supine Exercise Name hooklying position Equipment Used foam roller Reps/Minutes 8 x2 Sidelying Exercises SL ABD Sidelying Exercise Name AROM Side left Reps/Minutes 8 x 2 Comments full range ER Side left Equipment Used 1lb DB Reps/Minutes 12 x2 Comments cues on lumbar block open book Sidelying Exercise Name lumbar lock Side bilateral Reps/Minutes 10 x2 Comments cues on isolated T/S rotation with c/s rotation Sitting Exercises seated T/S ext Sitting Exercise Name cues on lumbar block Reps/Minutes 8 x2 Comments hands behind head. verbal cues for cervical ext and t/s ext Standing Exercises tennis ball release Standing Exercise Name at L RTC Reps/Minutes 2 mins Comments cues on using bodyweight to lean on wall. scap row Side bilateral Equipment Used level 2 band Reps/Minutes 3x10 Comments with trunk flexion f/b t/s extension and c/s extension Manual Therapy Treatment Soft Tissue Mobilization RTC Body Location L terres and infraspinatus Mobilization Type Sustained Pressure,Trigger Point Release Intensity/Depth Deep Body Position Sidelying upper trap Body Location L side Mobilization Type Sustained Pressure,Trigger Point Release Intensity/Depth Moderate Body Position Sitting PT-OP-T Assessment and Plan Start: 10/13/19 15:17 Freq: Status: Active Protocol: Document 10/25/19 11:15 HH (Rec: 10/25/19 12:16 [id number]) Physical Therapy Assessment Goals Exercise class Impairment Pt unable to fully participate in exercise class d/t L shoulder pain Short Term Goal (STG) Pt will be able to participate in exercise class with limited weight without inc in shoulder pain STG Duration 4 weeks Senior Living Goal (LTG) Pt will be able to fully participate in exercise class without limitation or inc in shoulder pain LTG Duration 8 weeks ROM Impairment Pt has limited L shoulder mobility Short Term Goal (STG) Pt will increase L shoulder flexion and abduction ROM by 10 dg to improve ability to complete overhead functional movements STG Duration 4 weeks Senior Living Goal (LTG) Pt will increase L shoulder flexion and abduction ROM by 20 dg to improve ability to complete overhead functional movements LTG Duration 8 weeks Quick DASH Impairment Pt scores as 29.5% impaired on Quick DASH Short Term Goal (STG) Pt will score <20% on Quick DASH to reflect improved participation in functional activities STG Duration 4 weeks Shade Matcher Goal (LTG) Pt will score <10% on Quick DASH to reflect improved participation in functional activities LTG Duration 8 weeks Assessment Summary Assessment Empty can test and MMT for shd abd both are not painful to pt today. Pt appears to have improved shd AROM with less discomfort. Progress to SL ER with 1 lb DB and SL AROM ABD. Added tennis ball release on RTC and seated t/s extension. Physical Therapy Plan Next Visit Focus/Plan Next Note Type Treatment Note Next Visit Plan Review HEP: TS mob, AAROM FF/ ABD dowel, rows TB and added tolerance to RTC isometrics last tx. Next tx add: pulleys, wall walking LUE warm up, postural TB #1 if tolerated. Continue manual. Continue per PT POC: scapular stabilization safe transfer assist practice
--- NOTE | 2019-11-01 14:30 | PT.OTN ---
Current Diagnoses Other shoulder lesions, left shoulder (11/01/19) Physical Therapy Treatment Note PT-OP-A Visit Information Start: 10/13/19 15:17 Freq: Status: Active Protocol: Document 11/01/19 13:47 SP (Rec: 11/01/19 14:33 SP [id number]) Out-Patient Physical Therapy Visit Information Visit Information Visit Type Treatment Note Visit Start Time 13:47 Visit Stop Time 14:30 Total Visit Minutes 43 Visit Number 5 Number of CLIENT EXPERIENCE CONSULTANT Visits 1 PT-OP-B Current Condition Start: 10/13/19 15:17 Freq: Status: Active Protocol: Document 10/13/19 15:17 HH (Rec: 10/13/19 17:30 HH [id number]) Current Condition History of Current Condition Onset Date ~1 month ago Current Complaints L shoulder/upper arm pain History of Current Condition Pt presents to PT with primary c/o L shoulder pain that started ~1 month ago. She states that she thinks she injured her shoulder while assisting her with transfers. Her has MS and is wheelchair bound, and typically is able to stand/ pivot transfer independently but 1 or 2 times/week pt needs to assist to prevent falls. She described her symptoms as dull and achy pain. She notes that the main activities that aggravate it are sleeping on her R side and doing shoulder barbell raise with B shoulder abduction and IR during her exercise class. She states that overall she thinks her pain is improving but still notes lingering pain after activity. Prior Treatments and Tests XR 10/11/19: no fx, AC joint degeneration Treatment Goals Patient/Caregiver Goals 1. improve shoulder ROM 2. able to fully participate in exercise class without pain 3. learn how to safely help with transfers to prevent reinjury PT-OP-C Subjective Start: 10/13/19 15:17 Freq: Status: Active Protocol: Document 11/01/19 13:47 SP (Rec: 11/01/19 14:33 SP [id number]) OP-PT Subjective Patient Comments Patient Comments Pt reported has been doing pretty well, no pain pre PT. Not able to do weights in class yet, able to sleep with no pain. PT-OP-H Neuro Start: 10/13/19 15:17 Freq: Status: Active Protocol: Document 10/13/19 15:17 HH (Rec: 10/13/19 17:30 HH [id number]) Sensation Evaluation Gross Sensation Gross Sensation WNL Deep Tendon Reflex & Clonus Assessment Deep Tendon Reflex Bilateral Tricep Deep Tendon Reflex 2+ Normal Bilateral Brachioradialis Deep Tendon Reflex 2+ Normal Bilateral Bicep Deep Tendon Reflex 2+ Normal PT-OP-J Posture/Palpation/Skin Start: 10/13/19 15:17 Freq: Status: Active Protocol: Document 10/13/19 15:17 HH (Rec: 10/13/19 17:30 [id number]) Posture Evaluation Position Sitting Evaluation View Lateral T-Spine Posture Increased Kyphosis Shoulder Posture (L) Rounded,(R) Rounded PT-OP-K Range of Motion Start: 10/13/19 15:17 Freq: Status: Active Protocol: Document 10/13/19 15:17 HH (Rec: 10/13/19 17:30 [id number]) Cervical Spine Range of Motion Cervical Spine Active Testing Position Sitting Flexion 50 Extension 50 Rotation Left 60 Rotation Right 45 Comments pt notes mild stretching sx in L shoulder with R C/S rotation and SB Shoulder Goniometric Range of Motion Shoulder Left Testing Position sitting, supine Flexion 150 Abduction 130 External Rotation at 90 degrees 50 Abduction Right Testing Position Sitting Flexion 170 Abduction 180 PT-OP-L Special Tests Start: 10/13/19 15:17 Freq: Status: Active Protocol: Document 10/13/19 15:17 HH (Rec: 10/13/19 17:30 [id number]) Special Tests Cervical Spine Special Tests Traction Test Results -ve Spurling's Test Test Results -ve Foraminal Compression Test Results -ve Comments mild stretch rotation in shoulder Shoulder Special Tests IR/Horizontal ADD Impingement Test Results -ve Cobb Test Test Results +ve weakness Neer Impingement Test Results -ve Lift-Off Rotator Cuff Test Results -ve Empty Can Comments +ve for weakness Claire Ulices Impingement Test Results -ve Yergason's Biceps Test Results -ve Biceps Load II Test Test Results -ve Apprehension Test Test Results +ve Comments + post relocation test Other Special Tests Special Tests Lumbar lock 20/30 JMD PT-OP-M Strength Start: 10/13/19 15:17 Freq: Status: Active Protocol: Document 10/13/19 15:17 HH (Rec: 10/13/19 17:30 [id number]) Shoulder Strength Shoulder Manual Muscle Testing Left Flexion 4 Good Abduction (C5) 4 Good External Rotation 4 Good Internal Rotation 4 Good Right Flexion 5 Normal Abduction (C5) 5 Normal External Rotation 5 Normal Internal Rotation 5 Normal Elbow/Forearm Strength Elbow and Forearm Manual Muscle Testing Bilateral Flexion (C6) 5 Normal Extension (C7) 5 Normal Wrist Strength Wrist Manual Muscle Testing Bilateral Flexion (C7) 5 Normal Extension (C6) 5 Normal Finger/Thumb Strength Finger Manual Muscle Testing Bilateral Flexion (fingers C8) 5 Normal Abduction (fingers T1) 5 Normal PT-OP-Q Treatments Start: 10/13/19 15:17 Freq: Status: Active Protocol: Document 11/01/19 13:47 SP (Rec: 11/01/19 14:33 SP [id number]) Therapeutic Exercises Supine Exercises snow madelyn Side bilateral Equipment Used foam roller Reps/Minutes 10 reps Sidelying Exercises plank shld taps off knees Reps/Minutes 2 x10 Sitting Exercises pulleys warm up Sitting Exercise Name FF/ ABD Side left Reps/Minutes 2x10 each direction Standing Exercises Abd/ IR Standing Exercise Name abd with IR Resistance Tb #3 Reps/Minutes 2x10 Comments cued 90/90 D1 ext, D2 flexion Equipment Used #3 Reps/Minutes 2x10 each direction Comments scap stab good form, alternate BUE posture TB Side bilateral Resistance # 2 Reps/Minutes x10 scap row Side bilateral Equipment Used level 3 band Reps/Minutes 3x10 Comments with trunk flexion f/b t/s extension and c/s extension PT-OP-T Assessment and Plan Start: 10/13/19 15:17 Freq: Status: Active Protocol: Document 11/01/19 13:47 SP (Rec: 11/01/19 14:33 SP [id number]) Physical Therapy Assessment Goals Exercise class Impairment Pt unable to fully participate in exercise class d/t L shoulder pain Short Term Goal (STG) Pt will be able to participate in exercise class with limited weight without inc in shoulder pain STG Duration 4 weeks Retirement Goal (LTG) Pt will be able to fully participate in exercise class without limitation or inc in shoulder pain LTG Duration 8 weeks ROM Impairment Pt has limited L shoulder mobility Short Term Goal (STG) Pt will increase L shoulder flexion and abduction ROM by 10 dg to improve ability to complete overhead functional movements STG Duration 4 weeks Retirement Goal (LTG) Pt will increase L shoulder flexion and abduction ROM by 20 dg to improve ability to complete overhead functional movements LTG Duration 8 weeks Quick DASH Impairment Pt scores as 29.5% impaired on Quick DASH Short Term Goal (STG) Pt will score <20% on Quick DASH to reflect improved participation in functional activities STG Duration 4 weeks Retirement Goal (LTG) Pt will score <10% on Quick DASH to reflect improved participation in functional activities LTG Duration 8 weeks Assessment Summary Assessment Pt tolerated HEP with TB wanting to incorporate increase challenge to work toward class decrease in modfiications. Added d1 ext and D2 flexion, abd w/ IR with increased resistance # 3 TB and plank taps off knees (pre pushups does in class) with occasional cuing for scap stabilization and PPT awareness with snow madelyn on foam roller for active stretching flexibiltiy with positive results. Pt stated no paiin, feels like had a good work out. Physical Therapy Plan Frequency and Duration Frequency of Treatment 2x/Week Duration of Treatment 8 weeks Plan of Care Start Date 10/13/19 Plan of Care End Date 12/08/19 Therapeutic Interventions Therapeutic Interventions Home Exercise Program,Joint Mobilizations,Manual Therapy, Neuromuscular Re-education, Patient/Caregiver Education, Self-Care/Home Management,Soft Tissue Mobilization,Taping, Therapeutic Activities, Therapeutic Exercises Modalities Cold Pack/Ice Massage,Electric Stimulation,Hot Packs, Ultrasound Next Visit Focus/Plan Next Note Type Treatment Note Next Visit Plan Review HEP and assess reponse last tx: added negar warm up, PNF with TB standing, abd w/ IR TB and snow madelyn foam roller end of last tx. Next tx progress in strengthening toward full participiation in calss. Continue manual as needed.
--- NOTE | 2019-11-15 14:27 | PT.OTN ---
Current Diagnoses Other shoulder lesions, left shoulder (11/15/19) Physical Therapy Treatment Note PT-OP-A Visit Information Start: 10/13/19 15:17 Freq: Status: Active Protocol: Document 11/15/19 13:45 HH (Rec: 11/15/19 14:27 [id number]) Out-Patient Physical Therapy Visit Information Visit Information Visit Type Discharge Summary Visit Start Time 13:45 Visit Stop Time 14:22 Total Visit Minutes 37 Visit Number 6 Number of SPECIAL WARF[employer] COMBATANT CREWMAN Visits 0 PT-OP-B Current Condition Start: 10/13/19 15:17 Freq: Status: Active Protocol: Document 10/13/19 15:17 HH (Rec: 10/13/19 17:30 [id number]) Current Condition History of Current Condition Onset Date ~1 month ago Current Complaints L shoulder/upper arm pain History of Current Condition Pt presents to PT with primary c/o L shoulder pain that started ~1 month ago. She states that she thinks she injured her shoulder while assisting her with transfers. Her has MS and is wheelchair bound, and typically is able to stand/ pivot transfer independently but 1 or 2 times/week pt needs to assist to prevent falls. She described her symptoms as dull and achy pain. She notes that the main activities that aggravate it are sleeping on her R side and doing shoulder barbell raise with B shoulder abduction and IR during her exercise class. She states that overall she thinks her pain is improving but still notes lingering pain after activity. Prior Treatments and Tests XR 10/11/19: no fx, AC joint degeneration Treatment Goals Patient/Caregiver Goals 1. improve shoulder ROM 2. able to fully participate in exercise class without pain 3. learn how to safely help with transfers to prevent reinjury PT-OP-C Subjective Start: 10/13/19 15:17 Freq: Status: Active Protocol: Document 11/15/19 13:45 HH (Rec: 11/15/19 14:27 [id number]) OP-PT Subjective Patient Comments Patient Comments Mikki been doing pretty good and the standing L shoulder external rotation hurts my biceps. I also cant do shoulder tap since my wrist hurt. Overhead acitivities do not have difficulty. I can also sleep on R side. Patient Reported Progress Improving PT-OP-H Neuro Start: 10/13/19 15:17 Freq: Status: Active Protocol: Document 10/13/19 15:17 HH (Rec: 10/13/19 17:30 HH [id number]) Sensation Evaluation Gross Sensation Gross Sensation WNL Deep Tendon Reflex & Clonus Assessment Deep Tendon Reflex Bilateral Tricep Deep Tendon Reflex 2+ Normal Bilateral Brachioradialis Deep Tendon Reflex 2+ Normal Bilateral Bicep Deep Tendon Reflex 2+ Normal PT-OP-J Posture/Palpation/Skin Start: 10/13/19 15:17 Freq: Status: Active Protocol: Document 10/13/19 15:17 HH (Rec: 10/13/19 17:30 HH [id number]) Posture Evaluation Position Sitting Evaluation View Lateral T-Spine Posture Increased Kyphosis Shoulder Posture (L) Rounded,(R) Rounded PT-OP-K Range of Motion Start: 10/13/19 15:17 Freq: Status: Active Protocol: Document 10/13/19 15:17 HH (Rec: 10/13/19 17:30 [id number]) Cervical Spine Range of Motion Cervical Spine Active Testing Position Sitting Flexion 50 Extension 50 Rotation Left 60 Rotation Right 45 Comments pt notes mild stretching sx in L shoulder with R C/S rotation and SB Shoulder Goniometric Range of Motion Shoulder Left Testing Position sitting, supine Flexion 150 Abduction 130 External Rotation at 90 degrees 50 Abduction Right Testing Position Sitting Flexion 170 Abduction 180 PT-OP-L Special Tests Start: 10/13/19 15:17 Freq: Status: Active Protocol: Document 10/13/19 15:17 HH (Rec: 10/13/19 17:30 [id number]) Special Tests Cervical Spine Special Tests Traction Test Results -ve Spurling's Test Test Results -ve Foraminal Compression Test Results -ve Comments mild stretch rotation in shoulder Shoulder Special Tests IR/Horizontal ADD Impingement Test Results -ve Marion Test Test Results +ve weakness Neer Impingement Test Results -ve Lift-Off Rotator Cuff Test Results -ve Empty Can Comments +ve for weakness Claire Ulices Impingement Test Results -ve Yergason's Biceps Test Results -ve Biceps Load II Test Test Results -ve Apprehension Test Test Results +ve Comments + post relocation test Other Special Tests Special Tests Lumbar lock 20/30 JMD PT-OP-M Strength Start: 10/13/19 15:17 Freq: Status: Active Protocol: Document 10/13/19 15:17 HH (Rec: 10/13/19 17:30 [id number]) Shoulder Strength Shoulder Manual Muscle Testing Left Flexion 4 Good Abduction (C5) 4 Good External Rotation 4 Good Internal Rotation 4 Good Right Flexion 5 Normal Abduction (C5) 5 Normal External Rotation 5 Normal Internal Rotation 5 Normal Elbow/Forearm Strength Elbow and Forearm Manual Muscle Testing Bilateral Flexion (C6) 5 Normal Extension (C7) 5 Normal Wrist Strength Wrist Manual Muscle Testing Bilateral Flexion (C7) 5 Normal Extension (C6) 5 Normal Finger/Thumb Strength Finger Manual Muscle Testing Bilateral Flexion (fingers C8) 5 Normal Abduction (fingers T1) 5 Normal PT-OP-Q Treatments Start: 10/13/19 15:17 Freq: Status: Active Protocol: Document 11/15/19 13:45 HH (Rec: 11/15/19 14:27 [id number]) Therapeutic Exercises Sitting Exercises seated snow madelyn Side bilateral Reps/Minutes 5 x2 pulleys warm up Sitting Exercise Name FF/ ABD Side left Reps/Minutes 2x10 each direction Standing Exercises standing ER Side bilateral Reps/Minutes 8 x2 prayer stretch Standing Exercise Name cues on T/S extension Side bilateral Reps/Minutes 10 sec hold TB pull apart Side bilateral Reps/Minutes 8 x2 PT-OP-T Assessment and Plan Start: 10/13/19 15:17 Freq: Status: Active Protocol: Document 11/15/19 13:45 HH (Rec: 11/15/19 14:27 [id number]) Physical Therapy Assessment Goals Exercise class Impairment Pt unable to fully participate in exercise class d/t L shoulder pain Short Term Goal (STG) Pt will be able to participate in exercise class with limited weight without inc in shoulder pain STG Duration 4 weeks Strapper Goal (LTG) 11/15 pt returned to class with full participation and no increase in discomfort LTG Duration 8 weeks ROM Impairment Pt has limited L shoulder mobility Short Term Goal (STG) Pt will increase L shoulder flexion and abduction ROM by 10 dg to improve ability to complete overhead functional movements STG Duration 4 weeks Strapper Goal (LTG) Goal 11/15: ROM equivalent to R shoulder LTG Duration 8 weeks Quick DASH Impairment Pt scores as 29.5% impaired on Quick DASH Short Term Goal (STG) Pt will score <20% on Quick DASH to reflect improved participation in functional activities STG Duration 4 weeks Care Home Goal (LTG) Pt will score <10% on Quick DASH to reflect improved participation in functional activities LTG Duration 8 weeks Assessment Summary Assessment Pt progressed very well and met all goals. Modified standing abd ER and supine snow madelyn to TB pull apart and seated snow madelyn. Added prayer stretch to improve T/S extension mobility. Pt denies pain for all special tests today. She reports 90 % recovered at this point and agreed to d/.c from PT Physical Therapy Plan Discharge Physical Therapy Discharge Reasons Goals Met
== END 2019-11-17 13:13 ==
LOC: PHYS 13:45
PROVIDERS: PCP Internal Medicine; Visit Provider Internal Medicine
DX: M75.82 Other shoulder lesions, left shoulder (principal)
CPT/HCPCS: 97110; 97140; 97161; 97535

== ENCOUNTER → 2020-07-21 14:24 | Outpatient (CLI) | payer MEDICARE, OTHER, SELFPAY ==
--- NOTE | 2020-07-21 | DI.MG.S_ITS ---
BILATERAL DIGITAL SCREENING MAMMOGRAM 3D/2D WITH CAD: 07/21/2020 CLINICAL: Routine screening. Family history of breast cancer. Comparison is made to exams dated: 06/09/2019 mammogram, 05/25/2018 mammogram, and 05/19/2017 mammogram - [facility]. There are scattered fibroglandular elements in both breasts. Current study was also evaluated with a Computer Aided Detection (CAD) system. No significant new masses, calcifications, or other findings are seen in either breast. There has been no significant interval change. IMPRESSION: NEGATIVE There is no mammographic evidence of malignancy. A 1 year screening mammogram is recommended. This exam was interpreted at Station ID: [id number]. NOTE: For mammograms, a report in lay terms will be sent to the patient. Approximately 15% of breast malignancies will not be visualized mammographically. In the management of a palpable breast mass, a negative mammogram must not discourage biopsy of a clinically suspicious lesion. Electronically Signed By: Malik arrieta/:07/23/2020 09:24:40 letter sent: Normal Exam ACR BI-RADS Category 1: Negative [id number]
== END ==
PROVIDERS: PCP Internal Medicine; Referring Provider Internal Medicine; Visit Provider Internal Medicine
DX: Z12.31 Encounter for screening mammogram for malignant neoplasm of breast (principal); Z80.3 Family history of malignant neoplasm of breast
CPT/HCPCS: 77063; 77067

== ENCOUNTER → 2020-07-31 18:23 | Outpatient (CLI) | payer MEDICARE, OTHER, SELFPAY | PROVIDERS: PCP Internal Medicine; Referring Provider Internal Medicine; Visit Provider Internal Medicine | DX: Z23 Encounter for immunization (principal) | CPT/HCPCS: 90471; 90662 ==

== ENCOUNTER → 2020-11-09 11:12 | Outpatient (CLI) | payer MEDICARE, OTHER, SELFPAY ==
[2020-11-09] MEDS: COVID-19 VACC(MODERNA-1)/PF 100 MCG/0.5 ML VIAL IM (11:17)
== END ==
PROVIDERS: PCP Internal Medicine; Visit Provider Internal Medicine
DX: Z23 Encounter for immunization (principal)
CPT/HCPCS: 0011A; 91301

== ENCOUNTER → 2020-12-07 11:01 | Outpatient (CLI) | payer MEDICARE, OTHER, SELFPAY ==
[2020-12-07] MEDS: COVID-19 VACC #2, MRNA(MOD) 100 MCG/0.5 ML VIAL IM (11:07)
== END ==
PROVIDERS: PCP Internal Medicine; Visit Provider Internal Medicine
DX: Z23 Encounter for immunization (principal)
CPT/HCPCS: 0012A; 91301

== ENCOUNTER → 2021-06-11 14:35 | Outpatient (CLI) | payer MEDICARE, OTHER, SELFPAY ==
--- NOTE | 2021-06-11 | DI.US.S_ITS ---
PROCEDURE: US RENAL COMPLETE INDICATIONS: RT FLANK PAIN TECHNIQUE: Real-time scanning was performed of the kidneys and bladder, with image documentation. COMPARISON: None. FINDINGS: Kidneys: Kidneys are normal in size. Right kidney measures 10.4 cm long; left kidney measures 11.0 cm long. Right renal cortical thickness is 1.3 cm; left renal cortical thickness is 1.4 cm. Renal cortical echotexture is normal. No hydronephrosis or nephrolithiasis. No suspicious solid mass lesions. Bladder: Pre-void bladder volume is 250 mL. Post-void residual is 72 mL. Pre-void images demonstrate no intraluminal masses or stones. On pre-void images, bilateral ureteral jets are noted with color Doppler interrogation. (Of note, ureteral jets may not be detectable in up to 25% of cases due to insufficient differences in specific gravity between ureteral and bladder urine). Miscellaneous: No free pelvic fluid. IMPRESSION: No source for right flank pain identified. Dictated by: Sky Bermudez Mellissa Interpreted: Juancho Vazquez MD on 06/11/2021 at 15:22 Transcribed by: WILLIAN on 06/11/2021 at 15:22 Approved by: Caden Jones M.D. on 06/12/2021 at 13:36
== END ==
PROVIDERS: PCP Internal Medicine; Referring Provider Internal Medicine; Visit Provider Internal Medicine
DX: R10.9 Unspecified abdominal pain (principal)
CPT/HCPCS: 76770

== ENCOUNTER → 2021-08-06 | Outpatient (CLI) | payer MEDICARE, OTHER, SELFPAY | PROVIDERS: PCP Internal Medicine; Referring Provider Internal Medicine; Visit Provider Internal Medicine | DX: Z23 Encounter for immunization (principal) | CPT/HCPCS: 90471; 90662 ==

== ENCOUNTER → 2021-08-10 14:19 | Outpatient (CLI) | payer MEDICARE, OTHER, SELFPAY ==
--- NOTE | 2021-08-10 14:21 | DI.MG.S_ITS ---
BILATERAL DIGITAL SCREENING MAMMOGRAM 3D/2D WITH CAD: 08/10/2021 CLINICAL: Routine screening. Family history of breast cancer. Comparison is made to exams dated: 07/21/2020 mammogram, 06/09/2019 mammogram, and 05/25/2018 mammogram - [facility]. There are scattered fibroglandular elements in both breasts. Current study was also evaluated with a Computer Aided Detection (CAD) system. There is a possible developing asymmetry in the right breast at 6 o'clock middle depth. This is increased in size. No other significant masses, calcifications, or other findings are seen in either breast. IMPRESSION: INCOMPLETE: NEEDS ADDITIONAL IMAGING EVALUATION The possible developing asymmetry in the right breast is indeterminate. Additional views with possible ultrasound are recommended. This exam was interpreted at Station ID: [id number]. NOTE: For mammograms, a report in lay terms will be sent to the patient. Approximately 15% of breast malignancies will not be visualized mammographically. In the management of a palpable breast mass, a negative mammogram must not discourage biopsy of a clinically suspicious lesion. Electronically Signed By: Winston Townsend M.D., jr/dary:08/12/2021 08:32:28 letter sent: Additional Imaging Needed ACR BI-RADS Category 0: Incomplete [id number]
== END ==
PROVIDERS: PCP Internal Medicine; Referring Provider Internal Medicine; Visit Provider Internal Medicine
DX: Z12.31 Encounter for screening mammogram for malignant neoplasm of breast (principal); Z80.3 Family history of malignant neoplasm of breast
CPT/HCPCS: 77063; 77067

== ENCOUNTER → 2021-09-04 12:39 | Outpatient (CLI) | payer MEDICARE, OTHER, SELFPAY ==
--- NOTE | 2021-09-04 | DI.US.S_ITS ---
LIMITED ULTRASOUND OF RIGHT BREAST: 09/04/2021 CLINICAL: Patient returns today to evaluate a focal asymmetry in the right breast. Comparison is made to exams dated: 09/04/2021 mammogram, 08/10/2021 mammogram, 07/21/2020 mammogram, 06/09/2019 mammogram, 05/25/2018 mammogram, and 05/19/2017 mammogram - [facility]. Color flow and real-time ultrasound of the right breast 6 o'clock region were performed. Steen scale images of the real-time examination were reviewed. There is a 0.8 cm x 0.6 cm x 0.4 cm oval cyst with a septated internal wall in the right breast at 6 o'clock anterior depth 2 cm from the nipple. This oval cyst is anechoic with posterior acoustic enhancement. This correlates with mammography findings. Color flow imaging demonstrates that there is no vascularity present. Adjacent duct ectasia. IMPRESSION: PROBABLY BENIGN The 0.8 cm complicated cyst in the right breast is probably benign. A follow-up mammogram and an ultrasound in 6 months is recommended to demonstrate stability. Exam findings were conveyed to the patient. This exam was interpreted at Station ID: [id number]. Electronically Signed By: Mc Redmond M.D. slc/:09/04/2021 14:04:31 letter sent: Followup Recommended Ultrasound BI-RADS: 3 Probably benign
--- NOTE | 2021-09-04 | DI.MG.S_ITS ---
UNILATERAL RIGHT DIGITAL DIAGNOSTIC MAMMOGRAM 3D/2D WITH ADDITIONAL VIEWS: 09/04/2021 CLINICAL: Additional evaluation requested from prior study. Comparison is made to exams dated: 08/10/2021 mammogram, 07/21/2020 mammogram, 06/09/2019 mammogram, 05/25/2018 mammogram, 05/19/2017 mammogram, and 02/19/2016 mammogram - [facility]. There are scattered fibroglandular elements in right breast. There is a 0.6 cm oval focal asymmetry in the right breast at 6 o'clock anterior depth. No other significant masses or calcifications are seen in the breast. IMPRESSION: INCOMPLETE: NEEDS ADDITIONAL IMAGING EVALUATION The 0.6 cm oval focal asymmetry in the right breast resembles a cyst and is indeterminate. A targeted ultrasound is recommended and will immediately follow. This exam was interpreted at Station ID: [id number]. NOTE: For mammograms, a report in lay terms will be sent to the patient. Approximately 15% of breast malignancies will not be visualized mammographically. In the management of a palpable breast mass, a negative mammogram must not discourage biopsy of a clinically suspicious lesion. Electronically Signed By: Mc Redmond M.D. slc/:09/04/2021 13:08:31 ACR BI-RADS Category 0: Incomplete [id number]
== END ==
PROVIDERS: PCP Internal Medicine; Referring Provider Internal Medicine; Visit Provider Internal Medicine
DX: Z12.31 Encounter for screening mammogram for malignant neoplasm of breast (principal)
CPT/HCPCS: 76642; 77065; G0279

== ENCOUNTER → 2022-04-11 16:27 | Outpatient (CLI) | payer MEDICARE, OTHER, SELFPAY ==
[2022-04-11 18:38] LABS: Hematocrit 39.6 % (36-46); Hemoglobin 13.5 g/dL (12.0-16.0); Mean Corpuscular HGB Conc 34.2 % (30-36); Mean Corpuscular Hemoglobin 30.2 PG (26-34); Mean Corpuscular Volume 88.2 fL (80-100); Platelet Count 179 X10^3/uL (150-400); Red Blood Cell Count 4.49 X10^6/uL (4.0-5.2); Red Cell Distribution Width 14.3 % (11.6-14.8)
[2022-04-12 02:00] LABS: Alanine Aminotransferase 10 IU/L (<35); Albumin 4.3 g/dL (3.5-5.0); Albumin Globulin Ratio 1.2 (1.0-2.8); Alkaline Phosphatase 73 U/L (38-126); Aspartate Aminotransferase 29 IU/L (14-36); BUN Creatinine Ratio 25.3 (6-22); Bilirubin Total 0.4 mg/dL (0.2-1.3); Blood Urea Nitrogen 19 mg/dL (7-17); Calcium 8.9 mg/dL (8.4-10.2); Carbon Dioxide 24 mmol/L (22-32); Chloride 106 mmol/L (98-107); Cholesterol 254 mg/dL (140-199); Estimated Glomerular Filt Rate > 60 mL/min (>60); Globulin 3.5 g/dL (1.7-4.1); Glucose 79 mg/dL (80-110); HDL Cholesterol 56 mg/dL (40-60); HEMOLYSIS < 15 (0-50); LDL Cholesterol Calculated 160 mg/dL (<100); Potassium 4.1 mmol/L (3.4-5.1); Sodium 139 mmol/L (137-145); Total Protein 7.8 g/dL (6.3-8.2); Triglycerides 190 mg/dL (35-150)
[2022-04-12 03:42] LABS: TSH w/ Reflex to FT4 2.67 uIU/mL (0.47-4.68)
== END ==
PROVIDERS: PCP Internal Medicine; Referring Provider Internal Medicine; Visit Provider Internal Medicine
DX: E78.2 Mixed hyperlipidemia (principal); Z80.0 Family history of malignant neoplasm of digestive organs
CPT/HCPCS: 36415; 80053; 80061; 84443; 85027

== ENCOUNTER → 2022-05-01 10:20 | Outpatient (CLI) | payer MEDICARE, OTHER, SELFPAY ==
--- NOTE | 2022-05-01 | DI.US.S_ITS ---
LIMITED ULTRASOUND OF RIGHT BREAST: 05/01/2022 CLINICAL: Short term follow up of the right breast. Comparison is made to exams dated: 09/04/2021 ultrasound and 09/04/2021 mammogram - [facility]. Color flow and real-time ultrasound of the right breast 6 o'clock region were performed. Steen scale images of the real-time examination were reviewed. There is 1.2 cm septated cyst associated with duct ectasia in the right breast at 6 o'clock anterior depth 2 cm from the nipple. This abnormality has increased in size, is more prominent, and correlates with mammography findings. Color flow imaging demonstrates that there is no vascularity present. IMPRESSION: PROBABLY BENIGN The 1.2 cm cystic duct ectasia in the right breast is probably with duct ectasia with a complicated cyst but is probably benign. A follow-up right ultrasound in 6 months is recommended to demonstrate stability. Findings and recommendations were conveyed to the patient at time of exam. This exam was interpreted at Station ID: [id number]. Electronically Signed By: Antonette posey/:05/01/2022 11:39:39 letter sent: Followup Recommended Ultrasound BI-RADS: 3 Probably benign
--- NOTE | 2022-05-01 | DI.MG.S_ITS ---
UNILATERAL RIGHT DIGITAL DIAGNOSTIC MAMMOGRAM 3D/2D SHORT-TERM FOLLOW-UP: 05/01/2022 CLINICAL: Short term follow up of the right breast. Comparison is made to exams dated: 09/04/2021 ultrasound, 09/04/2021 mammogram, and 08/10/2021 mammogram - [facility]. There are scattered fibroglandular elements in right breast. There is a 0.8 cm oval focal asymmetry in the right breast at 6 o'clock anterior depth. This has increased in size compared to prior. No other significant masses or calcifications are seen in the breast. IMPRESSION: INCOMPLETE: NEEDS ADDITIONAL IMAGING EVALUATION The 0.8 cm oval focal asymmetry in the right breast is a cyst on prior ultrasound and has increased in size. An ultrasound is recommended to evaluate internal architecture. This was performed immediately following this exam. Based on the Tyrer Cuzick model (a risk assessment model) the patient's lifetime risk is 9.6% and her 10 year risk is 6.6%. According to the ACR, ACS, and NCCN guidelines, an annual breast MRI exam along with mammogram is recommended if the patient's lifetime risk is 20% or greater. This exam was interpreted at Station ID: [id number]. NOTE: For mammograms, a report in lay terms will be sent to the patient. Approximately 15% of breast malignancies will not be visualized mammographically. In the management of a palpable breast mass, a negative mammogram must not discourage biopsy of a clinically suspicious lesion. Electronically Signed By: Antonette posey/:05/01/2022 11:14:55 ACR BI-RADS Category 0: Incomplete [id number]
== END ==
PROVIDERS: PCP Internal Medicine; Referring Provider Internal Medicine; Visit Provider Internal Medicine
DX: R92.8 Other abnormal and inconclusive findings on diagnostic imaging of breast (principal); N60.41 Mammary duct ectasia of right breast; N60.01 Solitary cyst of right breast
CPT/HCPCS: 76642; 77065; G0279

== ENCOUNTER → 2022-07-25 14:57 | Outpatient (CLI) | payer MEDICARE, OTHER, SELFPAY | PROVIDERS: PCP Internal Medicine; Referring Provider Internal Medicine; Visit Provider Internal Medicine | DX: Z23 Encounter for immunization (principal) | CPT/HCPCS: 90471; 90662 ==

== ENCOUNTER → 2022-10-24 09:13 | Outpatient (CLI) | payer MEDICARE, OTHER, SELFPAY ==
--- NOTE | 2022-10-24 09:15 | DI.RAD.S_ITS ---
PROCEDURE: XR CHEST 2V INDICATIONS: uri congestion/discomfort w/ inspiration x9 days, neg covid@home TECHNIQUE: 2 views of the chest were acquired. COMPARISON: [facility], , CHEST 2 VIEW, 05/30/2010, 14:03. FINDINGS: Surgical changes and devices: None. Lungs and pleura: Generalized interstitial prominence can be seen. No paulo, focal infiltrates are seen. No pneumothorax or pleural effusions are seen. Mediastinum: The cardiac contours are within normal limits. The aorta demonstrates calcification and tortuosity. Bones and chest wall: No suspicious bony abnormalities. Age-appropriate bony degenerative changes are seen. Accentuated thoracic kyphosis is seen. Soft tissues appear unremarkable. Apparent artifact (likely related to clothing) can be seen overlying the left upper lung. IMPRESSION: Generalized interstitial prominence can be seen. Please consider pulmonary edema versus atypical/viral infection. Dictated by: Armani Crowe M.D. on 10/24/2022 at 8:38 Approved by: Armani Crowe M.D. on 10/24/2022 at 8:39
== END ==
PROVIDERS: PCP Internal Medicine; Referring Provider Student in an Organized Health Care Education/Training Program; Visit Provider Student in an Organized Health Care Education/Training Program
DX: J06.9 Acute upper respiratory infection, unspecified (principal); R09.89 Other specified symptoms and signs involving the circulatory and respiratory systems
CPT/HCPCS: 71046

== ENCOUNTER → 2022-11-20 14:22 | Outpatient (CLI) | payer MEDICARE, OTHER, SELFPAY | PROVIDERS: PCP Internal Medicine; Referring Provider Internal Medicine; Visit Provider Internal Medicine | DX: Z12.31 Encounter for screening mammogram for malignant neoplasm of breast (principal) ==

== ENCOUNTER → 2022-11-21 14:00 | Outpatient (CLI) | payer MEDICARE, OTHER, SELFPAY ==
--- NOTE | 2022-11-21 | DI.US.S_ITS ---
LIMITED ULTRASOUND OF RIGHT BREAST: 11/21/2022 CLINICAL: 6 month follow up on right breast. Comparison is made to exams dated: 05/01/2022 ultrasound, 05/01/2022 mammogram, 09/04/2021 ultrasound, 09/04/2021 mammogram, and 08/10/2021 mammogram - [facility]. Color flow ultrasound of the right breast was performed. Steen scale images of the real-time examination were reviewed. There is 0.6 cm duct ectasia in the right breast at 6 o'clock anterior depth 2 cm from the nipple. This abnormality is decreased in size and correlates with mammography findings. Color flow imaging demonstrates that there is no vascularity present. IMPRESSION: PROBABLY BENIGN The 0.6 cm duct ectasia in the right breast is consistent with duct ectasia and is probably benign. A follow-up ultrasound in 6 months is recommended. This exam was interpreted at Station ID: [id number]. Electronically Signed By: Jarek Zacarias M.D. /:11/28/2022 12:01:13 letter sent: Followup Recommended Ultrasound BI-RADS: 3 Probably benign
--- NOTE | 2022-11-21 | DI.MG.S_ITS ---
BILATERAL DIGITAL SCREENING MAMMOGRAM 3D/2D WITH CAD: 11/21/2022 CLINICAL: Routine screening. Comparison is made to exams dated: 05/01/2022 ultrasound, 05/01/2022 mammogram, 09/04/2021 ultrasound, 09/04/2021 mammogram, and 08/10/2021 mammogram - [facility]. Both breasts are heterogeneously dense, which may obscure small masses (category c / 51-75% glandular tissue). Current study was also evaluated with a Computer Aided Detection (CAD) system. No significant masses, calcifications, or other findings are seen in either breast. There has been no significant interval change. IMPRESSION: NEGATIVE There is no mammographic evidence of malignancy. A 1 year screening mammogram is recommended. Based on the Tyrer Cuzick model (a risk assessment model) the patient's lifetime risk is 14.3% and her 10 year risk is 10.0%. According to the ACR, ACS, and NCCN guidelines, an annual breast MRI exam along with mammogram is recommended if the patient's lifetime risk is 20% or greater. This exam was interpreted at Station ID: [id number]. NOTE: For mammograms, a report in lay terms will be sent to the patient. Approximately 15% of breast malignancies will not be visualized mammographically. In the management of a palpable breast mass, a negative mammogram must not discourage biopsy of a clinically suspicious lesion. Electronically Signed By: Jarek tiwari/dary:11/21/2022 15:04:41 letter sent: Normal Exam ACR BI-RADS Category 1: Negative [id number]
== END ==
PROVIDERS: PCP Internal Medicine; Referring Provider Internal Medicine; Visit Provider Internal Medicine
DX: N60.41 Mammary duct ectasia of right breast; Z12.31 Encounter for screening mammogram for malignant neoplasm of breast; R92.8 Other abnormal and inconclusive findings on diagnostic imaging of breast
CPT/HCPCS: 76642; 77063; 77067

== ENCOUNTER → 2023-05-07 | Outpatient (CLI) | payer MEDICARE, OTHER, SELFPAY ==
--- NOTE | 2023-05-07 12:13 | DI.RAD.S_ITS ---
Bone Density Report Name: OMAR MORA Age: 73 Sex: Female Ethnicity: White Date of : 1950 Indication: postmenopausal; screening for osteoporosis; Referring Provider: EVANGELISTA HARRISON Study: Bone densitometry was performed. Exam Date: May 07, 2023 Accession number: [id number] Bone Density: Region BMD T-score Z-score Classification AP Spine(L1-L4) 1.213 1.5 3.8 Normal Femoral Neck (Left) 0.700 -1.3 0.6 Osteopenia Total Hip (Left) 0.925 -0.1 1.5 Normal Femoral Neck (Right) 0.751 -0.9 1.0 Normal Total Hip (Right) 0.914 -0.2 1.4 Normal Total Hip Mean 0.920 -0.2 1.5 Normal World Health Organization criteria for BMD impression classify patients as: Normal (T-score at or above -1.0), Osteopenia (T-score between -1.0 and -2.5), or Osteoporosis (T-score at or below -2.5). 10-year Fracture Risk(1): Major Osteoporotic Fracture 10% Hip Fracture 1.5% Reported Risk Factors: [place] (), Neck BMD=0.700, BMI=27.3 (1) FRAX(R) Version 3.08. Fracture probability calculated for an untreated patient. Fracture probability may be lower if the patient has received treatment. Previous Exams: -- Region Exam Age BMD T-score BMD Change BMD Change Date g/cm2 vs Baseline vs Previous -- AP Spine (L1-L4) 05/07/2023 73 1.213 1.5 -0.045 (-3.6%)# -0.045 (-3.6%)# 08/15/2011 61 1.258 1.9 Total Hip(Left) 05/07/2023 73 0.925 -0.1 -0.089 (-8.8%)# -0.089 (-8.8%)# 08/15/2011 61 1.015 0.6 Total Hip(Right) 05/07/2023 73 0.914 -0.2 -0.107 (-10.5%)# -0.107 (-10.5%)# 08/15/2011 61 1.022 0.7 -- *Denotes significance at 95% confidence level, LSC for AP Spine = 0.022 g/cm2, LSC for Total Hip = 0.027 g/cm2 # Denotes dissimilar scan types or analysis methods Impression: The patient has low bone mass, based on the Left Femoral Neck T-score. The patient has an estimated ten-year risk of hip fracture of 1.5% and an estimated ten-year risk of major fracture of 10%, based on the WHO FRAX algorithm. No significant bone loss was observed. Discussion: BONE DENSITY IS LOW AT ONE OR MORE SKELETAL SITES. This patient's lowest T-score is low at one or more skeletal sites. It meets the World Health Organization's (WHO) criteria for low bone mass (T-score between -1.0 and -2.5). The patient's 10-year risk of fracture as calculated by FRAX is less than the threshold where pharmacological therapy is recommended by the National Osteoporosis Foundation (NOF). However, all treatment decisions require clinical judgment and consideration of individual patient factors, including patient preferences, comorbidities, previous drug use, risk factors not captured in the FRAX model (e.g., frailty, falls, vitamin D deficiency, increased bone turnover, interval significant decline in bone density) and possible under or overestimation of fracture risk by FRAX. The patient should follow a healthful lifestyle (good nutrition with adequate calcium and vitamin D, and appropriate weight-bearing exercise). Follow-Up: Consider repeating this study in 2 to 3 years to reassess this patient's status, or sooner if there is some new clinical indication. Reported by: TRISH JOHN M.D. on 05/07/2023 5:31:00 PM.
== END ==
PROVIDERS: PCP Internal Medicine; Referring Provider Internal Medicine; Visit Provider Internal Medicine
DX: Z78.0 Asymptomatic menopausal state (principal); Z13.820 Encounter for screening for osteoporosis; M85.852 Other specified disorders of bone density and structure, left thigh
CPT/HCPCS: 77080

== ENCOUNTER 2024-05-18 09:36 | Day surgery (SDC) | payer MEDICARE, OTHER, SELFPAY ==
--- NOTE | 2024-05-18 10:05 | P.HP_ITS ---
History of Present Illness History of Present Illness Date Patient Seen: 05/18/24 Chief complaint: Dx Colonoscopy Narrative: Personal history of colon polyps and family history of colon cancer in her mother. Need for 5 year follow-up colonoscopy [facility] Medical History (Updated 05/03/24 @ 15:48 by Juan C Kemp MD) Osteopenia Overweight Mixed hyperlipidemia Abnormal mammogram of right breast Family history of colon cancer in mother Menopausal syndrome Primary osteoarthritis involving multiple joints Rosacea (~2017) Herpes (~1984) Irritable bowel syndrome (~2017) Surgical History Anesthesia History of tonsillectomy (~1966) Enchondroma (~1980) Family History Father Pulmonary fibrosis Mother Cancer Breast cancer History of bipolar disorder Brother Celiac disease Social History Smoking Status: Never smoker Meds Home Medications and Allergies Home Medications Medication Instructions Recorded Confirmed Type metronidazole 0.75 % topical gel See Rx Instructions topical DAILY 04/11/22 05/03/24 Rx #45 grams estradiol 10 mcg vaginal tablet 10 mcg vaginal 2XW #24 tabs 11/18/23 05/03/24 Rx (Yuvafem) Allergies Allergy/AdvReac Type Severity Reaction Status Date / Time No Known Drug Allergies Allergy Verified 05/03/24 15:21 Exam Narrative Exam Narrative: Oropharynx free of lesions Chest clear to auscultation percussion Cardiac exam reveals no S3 or murmur Assessment & Plan Assessment & Plan narrative: Personal history of colon polyps and family history of colon cancer need for follow-up colonoscopy. Risks, benefits, alternatives have been explained. Will proceed with colonoscopy. Time-Based Coding :: [TOTAL MINUTES] spent with patient and on the chart (including review of chart, obtaining history, exam, reviewing outside data, placing orders, documenting exam and treatment plan, and counseling patient) on [DATE].
--- NOTE | 2024-05-18 10:06 | PM.OP.COLON ---
Operative Date/Time/Diagnoses Date of procedure: 05/18/24 Pre-op diagnosis: See indication and findings Procedure & Clinicians Study performed: Colonoscopy Indications: Family history of colon cancer and personal history of colon polyps Surgeon: Vinicio Lofton Procedure Notes Procedure in detail: After informed consent was obtained the patient was placed in left lateral decubitus position. The video colonoscope was introduced to the rectum slowly advanced cecum. Preparation was good. On slow withdrawal mucosa was carefully examined. The scope was removed. The patient tolerated procedure well. Blood loss none Complications none Sedation mac Findings 1. Normal colonoscopy to cecum Patient should have follow-up colonoscopy in 5 years due to family history of colon cancer in a first-degree relative.
[2024-05-18 10:15] VITALS: BP 104/79; PULSE 79; RESP 13; TEMP 36.2; O2SAT 97
[2024-05-18] MEDS: LACTATED RINGERS 1,000 ML 42 ML IV (10:24)
[2024-05-18 11:08] VITALS: BP 97/57; PULSE 63; RESP 15; TEMP 36.3; O2SAT 95
[2024-05-18 11:12] VITALS: BP 106/66; PULSE 61; RESP 12; O2SAT 96
[2024-05-18 11:17] VITALS: BP 96/66; PULSE 65; RESP 15; O2SAT 95
[2024-05-18 11:22] VITALS: BP 102/59; PULSE 63; RESP 18; O2SAT 93
== END 2024-05-18 11:32 | disposition home or self-care (01) ==
PROVIDERS: PCP Internal Medicine; Referring Provider Internal Medicine Gastroenterology; Visit Provider Internal Medicine Gastroenterology
PROC: 0DJD8ZZ Inspection of Lower Intestinal Tract, Via Natural or Artificial Opening Endoscopic (ICD-10-PCS; CPT 45378; principal; 2024-05-18 10:30)
DX: Z12.11 Encounter for screening for malignant neoplasm of colon (principal); Z86.010 Personal history of colon polyps; Z80.0 Family history of malignant neoplasm of digestive organs
CPT/HCPCS: G0105; J2704

== ENCOUNTER → 2024-12-02 12:06 | Outpatient (CLI) | payer MEDICARE, OTHER, SELFPAY | PROVIDERS: PCP Internal Medicine; Visit Provider Physician Assistant Surgical | DX: R30.0 Dysuria (principal) | CPT/HCPCS: 87077; 87086; 87186 ==

== ENCOUNTER → 2024-12-17 12:26 | Outpatient (CLI) | payer MEDICARE, OTHER, SELFPAY | PROVIDERS: PCP Internal Medicine; Visit Provider Physician Assistant Surgical | DX: R30.0 Dysuria (principal) | CPT/HCPCS: 87077; 87086; 87186 ==

== ENCOUNTER → 2025-01-04 15:21 | Outpatient (CLI) | payer MEDICARE, OTHER, SELFPAY ==
[2025-01-04 17:01] LABS: Appearance Urine UA CLEAR; Bilirubin Urine UA NEGATIVE (NEGATIVE); Color Urine UA YELLOW; Glucose Urine UA NEGATIVE (Negative); Ketones Urine UA NEGATIVE (NEGATIVE); Leukocyte Esterase Urine UA NEGATIVE (NEGATIVE); Nitrite Urine UA NEGATIVE (Negative); Occult Blood Urine UA TRACE-INTACT (Negative); Protein Urine UA NEGATIVE (Negative); Specific Gravity Urine UA <=1.005 (1.000-1.035); Urobilinogen Urine UA 0.2 E.U./dL (0.2)
[2025-01-04 17:38] LABS: Urine Volume 10mL (spun)
[2025-01-04 17:39] LABS: Bacteria Urine None Seen; Culture Indicated Urine Cult Not Indicated; RBC Urine 0-1/HPF (0-5/HPF); Squamous Epithelial Cell Urine 0-1 /HPF (0-5/HPF); WBC Urine None Seen (0-5/HPF)
== END ==
PROVIDERS: PCP Internal Medicine; Referring Provider Internal Medicine; Visit Provider Internal Medicine
DX: N39.0 Urinary tract infection, site not specified (principal)
CPT/HCPCS: 81001

== ENCOUNTER → 2025-05-05 11:18 | Outpatient (CLI) | payer MEDICARE, OTHER, SELFPAY ==
--- NOTE | 2025-05-05 11:20 | DI.RAD.S_ITS ---
PROCEDURE: XR SHOULDER RT MIN 2V INDICATIONS: right shoulder pain TECHNIQUE: 3 views of the shoulder were acquired. COMPARISON: [facility], CR, XR SHOULDER LT MIN 2V, 10/11/2019, 16:01. FINDINGS: Bones: No fractures or dislocations. The humeral head is mildly high-riding and there is mild to moderate glenohumeral joint space narrowing and marginal osteophytosis. Moderate hypertrophic acromioclavicular arthropathy and joint space narrowing. No suspicious bony lesions. Visualized ribs appear intact. Soft tissues: No suspicious soft tissue calcifications. IMPRESSION: Degenerative change of the glenohumeral and acromioclavicular joints without evidence of acute osseous abnormality. Dictated by: Kelvin Cole M.D. on 05/07/2025 at 17:58 Approved by: Kelvin Cole M.D. on 05/07/2025 at 17:58
[2025-05-05 12:20] LABS: Hematocrit 39.7 % (36-46); Hemoglobin 13.6 g/dL (12.0-16.0); Mean Corpuscular HGB Conc 34.3 % (30-36); Mean Corpuscular Hemoglobin 30.3 PG (26-34); Mean Corpuscular Volume 88.3 fL (80-100); Platelet Count 175 X10^3/uL (150-400)
[2025-05-05 12:56] LABS: Alanine Aminotransferase 11 IU/L (<35); Albumin 4.6 g/dL (3.5-5.0); Albumin Globulin Ratio 1.6 (1.0-2.8); Alkaline Phosphatase 78 U/L (38-126); Blood Urea Nitrogen 14 mg/dL (7-17); Calcium 9.2 mg/dL (8.4-10.2); Carbon Dioxide 25 mmol/L (22-32); Chloride 104 mmol/L (98-107); Cholesterol 161 mg/dL (140-199); Estimated Glomerular Filt Rate > 60 mL/min (>60); Globulin 2.9 g/dL (1.7-4.1); Glucose 102 mg/dL (70-99); HDL Cholesterol 65 mg/dL (40-60); HEMOLYSIS < 15 (0-50); Potassium 4.4 mmol/L (3.4-5.1); Sodium 139 mmol/L (137-145); Total Protein 7.5 g/dL (6.3-8.2); Triglycerides 140 mg/dL (35-150)
[2025-05-05 13:21] LABS: TSH w/ Reflex to FT4 0.75 uIU/mL (0.47-4.68)
== END ==
PROVIDERS: PCP Internal Medicine; Referring Provider Internal Medicine; Visit Provider Internal Medicine
DX: M77.8 Other enthesopathies, not elsewhere classified (principal); E78.2 Mixed hyperlipidemia; N39.0 Urinary tract infection, site not specified; R53.83 Other fatigue
CPT/HCPCS: 36415; 73030; 80053; 80061; 84443; 85027